=== PATIENT | female | born 1960 ===

== ENCOUNTER 2023-12-20 08:26 | Day surgery (SDC) | payer OTHER ==
[~2023-12-20] VITALS: Ht 154.9 cm; Wt 63.5 kg
[2023-12-20] MEDS ORDERED: fentaNYL citrate 0.05 MG/ML VIAL ONE (09:32)
[2023-12-20] MEDS ORDERED: MIDAZOLAM 2 MG/2 ML VIAL ONE ×2 (09:36→10:29)
[2023-12-20] MEDS: MIDAZOLAM 2 MG/2 ML VIAL IVP ONE (10:04)
[2023-12-20] MEDS: fentaNYL citrate 0.05 MG/ML VIAL IVP ONE (10:05)
[2023-12-20] MEDS: LIDOCAINE 2% 100 MG/5 ML UJET TP ONE (10:29)
== END 2023-12-20 11:18 | disposition home or self-care (01) ==
LOC: MDS 08:26 → MMU 08:26 → MDS 11:18
PROVIDERS: ATTEND Internal Medicine Gastroenterology
DX: Z12.11 Encounter for screening for malignant neoplasm of colon (principal); K63.5 Polyp of colon; K21.9 Gastro-esophageal reflux disease without esophagitis; K44.9 Diaphragmatic hernia without obstruction or gangrene; I10 Essential (primary) hypertension; E78.00 Pure hypercholesterolemia, unspecified; Z87.891 Personal history of nicotine dependence; Z79.899 Other long term (current) drug therapy; Z98.890 Other specified postprocedural states
CPT/HCPCS: 36415; 43239; 45385; 86677; J2250; J3010